=== PATIENT | female | born 2000 | race Caucasian/White ===

== ENCOUNTER 2024-04-07 20:35 | Emergency (ER) | payer OTHER ==
[2024-04-07 20:42] VITALS: BP 116/68; PULSE 89; RESP 16; TEMP 97.8; BMI 25.0
[2024-04-07] MEDS ORDERED: DOXYCYCLINE HYCLATE 100 MG CAPSULE PO ONE (21:42)
[2024-04-07] MEDS: DOXYCYCLINE HYCLATE 100 MG CAPSULE PO ONE (21:43)
== END 2024-04-07 22:39 | disposition home or self-care (01) ==
LOC: FER 20:35
DX: R21 Rash and other nonspecific skin eruption (principal); A69.20 Lyme disease, unspecified
CPT/HCPCS: 93005; 99283-25